=== PATIENT | male | born 1960 | race African-American/Black ===

== ENCOUNTER 2018-05-09 17:32 | Emergency (ER) | payer MEDICAID ==
[~2018-05-09] VITALS: Ht 180.3 cm; Wt 74.8 kg
[2018-05-09 17:40] VITALS: BP 132/95
[2018-05-09] MEDS: IPRATROPIUM BROM 0.5 MG/2.5ML INH SOL NEB ONE (21:01)
[2018-05-09] MEDS: ALBUTEROL SULF 2.5 MG/0.5ML(0.5%) NEB SOLN NEB ONE (21:01)
== END 2018-05-09 21:40 | disposition home or self-care (01) ==
LOC: ER 17:39
DX: J18.9 Pneumonia, unspecified organism (principal)
CPT/HCPCS: 71046; 94640; 99283; J7611; J7644